=== PATIENT | female | born 1980 | race Caucasian/White ===

== ENCOUNTER 2017-09-24 11:45 | Emergency (ER) | payer OTHER ==
[2017-09-24 12:03] VITALS: BP 120/60; O2SAT 98
--- NOTE | 2017-09-24 12:14 | ERPHSYRPT ---
- History of Present Illness Time Seen by Provider: 09/24/17 12:05 Source: patient Exam Limitations: no limitations Patient Subjective Stated Complaint: here for swelling to right eye since sunday. unsure of what happened, has been outside this weekend Triage Nursing Assessment: pt alert, resp easy, skin w/d/p.right eye with redness and slight swelling Physician History: 37-year-old white female arrives with complaint of swelling in the right lower eyelid symptoms for 2 days. Patient states she had a sore throat and then the 2 days ago she woke up with the swelling and drainage from her right lower eyelid. She denies any injury. She has not had a fever past medical history includes migraines, peripheral neuropathy, hypercholesterolemia, diabetes, fibromyalgia, GERD, chronic back pain. Past surgical history includes , laparoscopy. . Timing/Duration: day(s) Severity: moderate Modifying Factors: Improves With: nothing (2 days) Associated Symptoms: other (swelling right lower eyelid, sore throat), No nausea , No vomiting, No abdominal pain, No shortness of breath, No heartburn, No diaphoresis, No cough, No chills, No chest pain, No fever, No headaches, No loss of appetite, No malaise, No rash, No syncope, No seizure, No weakness Allergies/Adverse Reactions: hydromorphone HCl [From Dilaudid] Allergy (Intermediate, Verified 09/24/17 12:04 ) Rash aspirin Allergy (Verified 09/24/17 12:04) carisoprodol [From Soma] Allergy (Verified 09/24/17 12:04) doxycycline Allergy (Verified 09/24/17 12:04) glipizide Allergy (Verified 09/24/17 12:04) sulfamethoxazole [From Bactrim] Allergy (Verified 09/24/17 12:04) trimethoprim [From Bactrim] Allergy (Verified 09/24/17 12:04) control pills Allergy (Uncoded 09/24/17 12:04) Home Medications: Bupropion HCl 150 mg Sr [Wellbutrin SR 150 MG] 150 mg PO BID 03/16/16 [ History] Calcium Carbonate [[id number]] 500 mg PO DAILY 03/16/16 [History] Cetirizine HCl [Zyrtec] 10 mg PO DAILY 03/16/16 [History] Gabapentin 600 mg PO TID 03/16/16 [History] Ipratropium/Albuterol Sulfate [Combivent Respimat Common Canister] 2 puffs IH QID 03/16/16 [History] Metformin HCl 500 mg [Glucophage 500 MG] 500 mg PO BID 03/16/16 [History] Omeprazole [Prilosec] 40 mg PO DAILY 03/16/16 [History] Potassium Chloride 10 Meq Tab* [Klor Con 10 MEQ] 10 meq PO BID 03/16/16 [ History] Promethazine HCl 12.5 mg PO Q4HPRN PRN 03/16/16 [History] Propranolol HCl [Inderal LA] 60 mg PO DAILY 03/16/16 [History] Ropinirole HCl [Requip] 2 mg PO HS 03/16/16 [History] Simvastatin 40 mg [Zocor 40 mg] 40 mg PO DAILY 03/16/16 [History] Topiramate [Topamax] 50 mg PO BID 03/16/16 [History] Hydrochlorothiazide 25 mg [hydroDIURIL 25 MG] 0 mg PO DAILY 06/27/16 [ History] Furosemide [Furosemide] 20 mg DAILY 09/24/17 [History] Hx Tetanus, Diphtheria Vaccination/Date Given: No Hx Influenza Vaccination/Date Given: Yes Hx Pneumococcal Vaccination/Date Given: No Immunizations Up to Date: Yes - Review of Systems Constitutional: No Fever, No Chills Eyes: Discharge, Eye Pain, Other (swelling right lower eyelid) Ears, Nose, & Throat: No Ear Pain, No Ear Discharge, No Hearing Changes, No Tinnitus, No Nose Pain, No Nose Congestion, No Nose Discharge, No Sinus Drainage , No Epistaxis, No Mouth Pain, No Mouth Swelling, No Loose Teeth, No Throat Swelling, No Hoarse, No Painful Swallowing, No Snoring, No Stridor Respiratory: No Cough, No Dyspnea Cardiac: No Chest Pain, No Edema, No Syncope Abdominal/Gastrointestinal: No Abdominal Pain, No Nausea, No Vomiting, No Diarrhea Genitourinary Symptoms: No Dysuria Musculoskeletal: No Back Pain, No Neck Pain Skin: No Rash Neurological: No Dizziness, No Focal Weakness, No Sensory Changes Psychological: No Symptoms Endocrine: No Symptoms All Other Systems: Reviewed and Negative - Past Medical History Pertinent Past Medical History: Yes Neurological History: No Pertinent History Cardiac History: Congestive Heart Failure, High Cholesterol Respiratory History: Emphysema Endocrine Medical History: Diabetes Type II Musculoskeletal History: Fibromyalgia GI Medical History: GERD Other Medical History: HAD LEUKEMIA WHEN SHE WAS 3 YEARS OLD. - Past Surgical History Past Surgical History: Yes Other Surgical History: c-sections et laparoscopy,wrist surg , carpal tunnel - Social History Smoking Status: Current every day smoker Exposure to second hand smoke: Yes Drug Use: none Patient Lives Alone: No - Female History Hx Last Menstrual Period: now Hx Now: No - Nursing Vital Signs Nursing Vital Signs: Initial Vital Signs Temperature 98.1 F 09/24/17 11:58 Pulse Rate 76 09/24/17 11:58 Respiratory Rate 16 09/24/17 11:58 Blood Pressure 120/60 09/24/17 11:58 O2 Sat by Pulse Oximetry 98 09/24/17 11:58 Pain Scale Pain Intensity 8 - Physical Exam General Appearance: mild distress Eye Exam: other (eyes PERRLA, extraocular muscles intact, right conjunctiva erythematous.edema right lower eyelid, no foreign bodies noted) Ears, Nose, Throat Exam: normal ENT inspection, TMs normal, pharynx normal, moist mucous membranes Neck Exam: normal inspection, non-tender, supple, full range of motion Respiratory Exam: normal breath sounds, lungs clear, No respiratory distress Cardiovascular Exam: regular rate/rhythm, normal heart sounds, normal peripheral pulses Gastrointestinal/Abdomen Exam: soft, normal bowel sounds, No tenderness, No mass Back Exam: normal inspection, normal range of motion, No CVA tenderness, No vertebral tenderness Extremity Exam: normal inspection, normal range of motion, pelvis stable Neurologic Exam: alert, oriented x 3, cooperative, 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, normal mood/affect, nml cerebellar function, nml station & gait, sensation nml, No motor deficits Skin Exam: normal color, warm, dry, No rash Lymphatic Exam: No adenopathy SpO2 Interpretation: normal (98%) SpO2: 98 Oxygen Delivery: Room Air - Course Nursing assessment & vital signs reviewed: Yes Ordered Tests: Active Orders 24 hr Category Date Time Status CULTURE, THROAT Stat Lab 09/24/17 12:18 Received STREP SCREEN-BETA A Stat Lab 09/24/17 12:18 Completed Medication Summary Discontinued Medications Generic Name Dose Route Start Last Admin Trade Name Freq PRN Reason Stop Dose Admin Ciprofloxacin 2.5 ml 09/24/17 12:28 09/24/17 12:36 Ciloxan Ophth OP 09/24/17 12:29 2.5 ml STAT ONE Administration Ciprofloxacin Confirm 09/24/17 12:35 Ciloxan Ophth Administered 09/24/17 12:36 Dose 2.5 ml .ROUTE .STK-MED ONE Lab/Rad Data: Laboratory Results 09/24/17 Range/Units 12:18 Streptococcus Screen NEGATIVE (Negative) - Progress Progress: improved Progress Note: 09/24/17 12:14 37-year-old white female arrives with complaint of drainage from the right eyes swelling of the right lower eyelid symptoms for 2 days. She states she had a sore throat prior to this and then woke up with the above- noted complaint. She has no fevers no vomiting. On physical examination eyes PERRLA EOMI fundi are unremarkable. Right conjunctiva erythematous there is yellow drainage from the right eye there is edema to the right lower eyelid. There are no foreign bodies in the eyes. Vision exam was obtained by the patient's nurse this is 20/50 in both eyes. Strep is pending. Anticipate appropriate antibiotics 09/24/17 12:30 patient with negative strep Will place patient on Ciloxan drops 1-2 drops left eye 4 times a day for 5 days as well as oral Benadryl 09/24/17 12:33 patient states that her period is now and denies chance of . - Departure Time of Disposition: 12:31 Departure Disposition: Home Clinical Impression: Swelling of right lower eyelid Conjunctivitis, right eye Qualifiers: Conjunctivitis type: unspecified Qualified Code(s): H10.9 - Unspecified conjunctivitis Condition: Fair Critical Care Time: No Referrals: GALLO POWELL [Primary Care Provider] - Additional Instructions: Return home. Ciloxan drops 0.3% one to 2 drops right eye 4 times a day for 5 days. Tylenol every 4 hours as needed for pain. Benadryl 50 mg orally every 6 hours for 2-3 days . 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 Return for acute distress or for severe symptoms.
[2017-09-24] MEDS ORDERED: Ciloxan OPHTH ONE (12:35)
[2017-09-24] MEDS: Ciloxan OPHTH OP ONE (12:36)
[2017-09-24 13:21] VITALS: PULSE 70
== END 2017-09-24 13:00 | disposition home or self-care (01) ==
LOC: ED 11:45
DX: H10.9 Unspecified conjunctivitis (principal); J02.9 Acute pharyngitis, unspecified; Z79.899 Other long term (current) drug therapy
CPT/HCPCS: 87070; 87430; 99283; A9270-GY

== ENCOUNTER 2019-04-04 16:26 | Emergency (ER) | payer OTHER ==
--- NOTE | 2019-04-04 16:28 | ERPHSYRPT ---
- History of Present Illness Time Seen by Provider: 04/04/19 16:28 Historian: patient, family Exam Limitations: no limitations Physician History: 39 y/o white female presents with 2 to 3 day right upper quad abd pain. she has associated feculent belching and diarrhea for 2 days. no prior abd surgeries. pt states she had a h/o gallstones in the past. additionally, she states she has an appt with her pcp on Sunday04/07/19 Timing/Duration: day(s) (2 to 3) Quality: sharpness Abdominal Pain Onset Location: RUQ Pain Radiation: no radiation Severity of Pain-Max: moderate Severity of Pain-Current: moderate Modifying Factors: Improves With: nothing Associated Symptoms: diarrhea, nausea Previous symptoms: no prior history Allergies/Adverse Reactions: hydromorphone HCl [From Dilaudid] Allergy (Intermediate, Verified 09/24/17 12:04 ) Rash aspirin Allergy (Verified 09/24/17 12:04) carisoprodol [From Soma] Allergy (Verified 09/24/17 12:04) doxycycline Allergy (Verified 09/24/17 12:04) glipizide Allergy (Verified 09/24/17 12:04) sulfamethoxazole [From Bactrim] Allergy (Verified 09/24/17 12:04) trimethoprim [From Bactrim] Allergy (Verified 09/24/17 12:04) control pills Allergy (Uncoded 09/24/17 12:04) Home Medications: Gabapentin 300 mg PO TID 03/16/16 [History] Ipratropium/Albuterol Sulfate [Combivent Respimat Common Canister] 2 puffs IH QID 03/16/16 [History] Metformin HCl 500 mg [Glucophage 500 MG] 1,000 mg PO BID 03/16/16 [History ] Omeprazole [Prilosec] 40 mg PO DAILY 03/16/16 [History] Potassium Chloride 10 Meq Tab* [Klor Con 10 MEQ] 10 meq PO DAILY 03/16/16 [ History] Topiramate [Topamax] 50 mg PO BID 03/16/16 [History] Pravastatin Sodium 40 mg PO DAILY 04/04/19 [History] Sitagliptin Phosphate [Januvia] 100 mg PO DAILY 04/04/19 [History] Hx Tetanus, Diphtheria Vaccination/Date Given: No Hx Influenza Vaccination/Date Given: Yes Hx Pneumococcal Vaccination/Date Given: No - Review of Systems Constitutional: No Symptoms Eyes: No Symptoms Ears, Nose, & Throat: No Symptoms Respiratory: No Symptoms Cardiac: No Symptoms Abdominal/Gastrointestinal: Abdominal Pain (ruq abd pain), Diarrhea Genitourinary Symptoms: No Symptoms Musculoskeletal: No Symptoms Skin: No Symptoms Neurological: No Symptoms Psychological: No Symptoms Endocrine: No Symptoms Hematologic/Lymphatic: No Symptoms Immunological/Allergic: No Symptoms All Other Systems: Reviewed and Negative - Past Medical History Pertinent Past Medical History: Yes Neurological History: No Pertinent History Cardiac History: Congestive Heart Failure, High Cholesterol Respiratory History: Emphysema Endocrine Medical History: Diabetes Type II Musculoskeletal History: Fibromyalgia GI Medical History: GERD, Gallbladder Disease History: No Pertinent History Psycho-Social History: No Pertinent History Female Reproductive Disorders: No Pertinent History Other Medical History: HAD LEUKEMIA WHEN SHE WAS 3 YEARS OLD. - Past Surgical History Past Surgical History: Yes Neuro Surgical History: No Pertinent History Cardiac: No Pertinent History Respiratory: No Pertinent History Gastrointestinal: No Pertinent History Genitourinary: No Pertinent History Musculoskeletal: No Pertinent History Female Surgical History: No Pertinent History Other Surgical History: c-sections et laparoscopy,wrist surg , carpal tunnel - Social History Smoking Status: Current every day smoker Exposure to second hand smoke: Yes Drug Use: none Patient Lives Alone: No - Nursing Vital Signs Nursing Vital Signs: Initial Vital Signs Temperature 97.9 F 04/04/19 16:35 Pulse Rate 94 H 04/04/19 16:35 Respiratory Rate 18 04/04/19 16:35 Blood Pressure 138/81 04/04/19 16:35 O2 Sat by Pulse Oximetry 100 04/04/19 16:35 Pain Scale Pain Intensity 6 - Physical Exam General Appearance: no apparent distress, alert, anxiety Eye Exam: PERRL/EOMI, eyes nml inspection Ears, Nose, Throat Exam: normal ENT inspection, moist mucous membranes Neck Exam: normal inspection, non-tender, supple, full range of motion Respiratory Exam: normal breath sounds, lungs clear, airway intact, No chest tenderness, No respiratory distress Cardiovascular Exam: regular rate/rhythm, normal heart sounds, normal peripheral pulses Gastrointestinal/Abdomen Exam: soft, normal bowel sounds, tenderness (ruq), guarding, No rebound Pelvic Exam: not done Rectal Exam: not done Back Exam: normal inspection, normal range of motion, No CVA tenderness, No vertebral tenderness Extremity Exam: normal inspection, normal range of motion, pelvis stable Neurologic Exam: alert, oriented x 3, cooperative, 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 as tested Skin Exam: normal color, warm, dry Lymphatic Exam: No adenopathy SpO2 Interpretation: normal O2 Delivery: Room Air Ordered Tests: Active Orders 24 hr Category Date Time Status IV Insertion STAT Care 04/04/19 17:19 Active ABDOMEN AND PELVIS W/0 CONTRAS [CT] Stat Exams 04/04/19 17:22 Taken AMYLASE Stat Lab 04/04/19 17:35 Completed CBC W DIFF Stat Lab 04/04/19 17:35 Completed CMP Stat Lab 04/04/19 17:35 Completed CULTURE,URINE Stat Lab 04/04/19 16:47 Received LIPASE Stat Lab 04/04/19 17:35 Completed Lactic Acid Stat Lab 04/04/19 17:19 Completed UA W/RFX UR CULTURE Stat Lab 04/04/19 16:47 Completed Medication Summary Discontinued Medications Generic Name Dose Route Start Last Admin Trade Name Ernieq PRN Reason Stop Dose Admin Hydrocodone Bitart/Acetaminophen 1 tab 04/04/19 19:03 04/04/19 19:10 [place] 5/325 Mg PO 04/04/19 19:04 1 tab STAT ONE Administration Hydrocodone Bitart/Acetaminophen Confirm 04/04/19 19:09 [place] 5/325 Mg Administered 04/04/19 19:10 Dose 1 tab .ROUTE .STK-MED ONE Sodium Chloride 1,000 mls @ 999 mls/hr 04/04/19 17:19 04/04/19 17:31 Sodium Chloride 0.9% 1000 Ml IV 04/04/19 18:19 999 mls/hr .Q1H1M STA Administration Sodium Chloride Confirm 04/04/19 17:26 Sodium Chloride 0.9% 1000 Ml Administered 04/04/19 17:27 Dose 1,000 mls @ ud .ROUTE .STK-MED ONE Ondansetron HCl 4 mg 04/04/19 17:19 04/04/19 17:31 Zofran 4 Mg/2 Ml Vial IV 04/04/19 17:20 4 mg STAT ONE Administration Ondansetron HCl Confirm 04/04/19 17:26 Zofran 4 Mg/2 Ml Vial Administered 04/04/19 17:27 Dose 4 mg .ROUTE .STK-MED ONE Trimethoprim/Sulfamethoxazole 1 tab 04/04/19 18:50 04/04/19 19:10 Bactrim Ds Tablet PO 04/04/19 18:51 1 tab STAT ONE Administration Trimethoprim/Sulfamethoxazole Confirm 04/04/19 19:08 Bactrim Ds Tablet Administered 04/04/19 19:09 Dose 1 tab PO .STK-MED ONE Lab/Rad Data: Laboratory Result Diagrams 04/04/19 17:35 04/04/19 17:35 Laboratory Results 04/04/19 04/04/19 04/04/19 Range/Units 17:35 17:35 17:19 WBC 9.2 (4.0-10.5) K/mm3 RBC 4.79 (4.1-5.4) M/mm3 Hgb 13.8 (12.0-16.0) gm/dl Hct 43.2 (35-47) % MCV 90.2 (78-100) fl MCH 28.8 (26-32) pg MCHC 31.9 L (32-36) g/dl RDW 14.9 H (11.5-14.0) % Plt Count 285 (150-450) K/mm3 MPV 10.3 H (6-9.5) fl Gran % 59.5 (36.0-66.0) % Eos # (Auto) 0.25 (0-0.5) Absolute Lymphs (auto) 2.81 (1.0-4.6) Absolute Monos (auto) 0.63 (0.0-1.3) Lymphocytes % 30.6 (24.0-44.0) % Monocytes % 6.9 (0.0-12.0) % Eosinophils % 2.7 (0.00-5.0) % Basophils % 0.3 (0.0-0.4) % Absolute Granulocytes 5.47 (1.4-6.9) Basophils # 0.03 (0-0.4) Sodium 143 (137-145) mmol/L Potassium 3.9 (3.5-5.1) mmol/L Chloride 111 H (98-107) mmol/L Carbon Dioxide 21 L (22-30) mmol/L Anion Gap 14.1 (5-15) MEQ/L BUN 8 (7-17) mg/dL Creatinine 0.70 (0.52-1.04) mg/dL Estimated GFR > 60.0 ML/MIN Glucose 188 H (74-106) mg/dL Lactic Acid 1.8 (0.4-2.0) Calcium 10.0 (8.4-10.2) mg/dL Total Bilirubin 0.30 (0.2-1.3) mg/dL AST 20 (14-36) U/L ALT 22 (0-35) U/L Alkaline Phosphatase 86 (38-126) U/L Serum Total Protein 7.6 (6.3-8.2) g/dL Albumin 4.2 (3.5-5.0) g/dL Amylase 93 (30-110) U/L Lipase 239 (23-300) U/L Urine Color (YELLOW) Urine Appearance (CLEAR) Urine pH (5-6) Ur Specific [place] (1.005-1.025) Urine Protein (Negative) Urine Ketones (NEGATIVE) Urine Blood (0-5) [place]/ul Urine Nitrite (NEGATIVE) Urine Bilirubin (NEGATIVE) Urine Urobilinogen (0-1) mg/dL Ur Leukocyte Esterase (NEGATIVE) Urine WBC (Auto) (0-5) /HPF Urine RBC (Auto) (0-2) /HPF U Epithel Cells (Auto) (FEW) /HPF Urine Bacteria (Auto) (NEGATIVE) /HPF Urine Yeast (Budding) (NEGATIVE) /HPF Urine Culture Reflexed (NO) Urine Glucose (NEGATIVE) mg/dL 04/04/19 Range/Units 16:47 WBC (4.0-10.5) K/mm3 RBC (4.1-5.4) M/mm3 Hgb (12.0-16.0) gm/dl Hct (35-47) % MCV (78-100) fl MCH (26-32) pg MCHC (32-36) g/dl RDW (11.5-14.0) % Plt Count (150-450) K/mm3 MPV (6-9.5) fl Gran % (36.0-66.0) % Eos # (Auto) (0-0.5) Absolute Lymphs (auto) (1.0-4.6) Absolute Monos (auto) (0.0-1.3) Lymphocytes % (24.0-44.0) % Monocytes % (0.0-12.0) % Eosinophils % (0.00-5.0) % Basophils % (0.0-0.4) % Absolute Granulocytes (1.4-6.9) Basophils # (0-0.4) Sodium (137-145) mmol/L Potassium (3.5-5.1) mmol/L Chloride (98-107) mmol/L Carbon Dioxide (22-30) mmol/L Anion Gap (5-15) MEQ/L BUN (7-17) mg/dL Creatinine (0.52-1.04) mg/dL Estimated GFR ML/MIN Glucose (74-106) mg/dL Lactic Acid (0.4-2.0) Calcium (8.4-10.2) mg/dL Total Bilirubin (0.2-1.3) mg/dL AST (14-36) U/L ALT (0-35) U/L Alkaline Phosphatase (38-126) U/L Serum Total Protein (6.3-8.2) g/dL Albumin (3.5-5.0) g/dL Amylase (30-110) U/L Lipase (23-300) U/L Urine Color YELLOW (YELLOW) Urine Appearance SLIGHTLY CLOUDY (CLEAR) Urine pH 6.0 (5-6) Ur Specific [place] 1.005 (1.005-1.025) Urine Protein NEGATIVE (Negative) Urine Ketones NEGATIVE (NEGATIVE) Urine Blood LARGE (0-5) [place]/ul Urine Nitrite NEGATIVE (NEGATIVE) Urine Bilirubin NEGATIVE (NEGATIVE) Urine Urobilinogen NEGATIVE (0-1) mg/dL Ur Leukocyte Esterase TRACE (NEGATIVE) Urine WBC (Auto) 6-10 (0-5) /HPF Urine RBC (Auto) 0-2 (0-2) /HPF U Epithel Cells (Auto) RARE (FEW) /HPF Urine Bacteria (Auto) NONE (NEGATIVE) /HPF Urine Yeast (Budding) Rare (NEGATIVE) /HPF Urine Culture Reflexed YES (NO) Urine Glucose NEGATIVE (NEGATIVE) mg/dL - Progress Progress: unchanged Progress Note: 04/04/19 18:52 ct abd/pelvis-left nephrolithiasis. 04/04/19 19:13 cancelled bactrim ds. will give cipro Counseled pt/family regarding: lab results, diagnosis, need for follow-up, rad results - Departure Departure Disposition: Home Clinical Impression: UTI (urinary tract infection) Condition: Stable Critical Care Time: No Referrals: GALLO POWELL [Primary Care Provider] - Additional Instructions: drink plenty of fluids. follow up with primary doctor for further management. Prescriptions: Ciprofloxacin [Cipro 500 MG] 500 mg PO BID #14 tablet
[2019-04-04] MEDS ORDERED: Zofran 4 MG/2 ML VIAL IV ONE (17:19)
[2019-04-04] MEDS ORDERED: Sodium Chloride 0.9% 1000 ML 1,000 ML IV STA (17:19)
[2019-04-04] MEDS ORDERED: Zofran 4 MG/2 ML VIAL ONE (17:26)
[2019-04-04] MEDS ORDERED: Sodium Chloride 0.9% 1000 ML 1,000 ML ONE (17:26)
[2019-04-04 17:41] LABS: Absolute Neutrophil Ct (ANC) 5.47 (1.4-6.9); BASOPHIL % 0.3 % (0.0-0.4); Basophil (Absolute #) 0.03 (0-0.4); Eosinophil % 2.7 % (0.00-5.0); Eosinophil (Absolute #) 0.25 (0-0.5); Hematocrit 43.2 % (35-47); Hemoglobin 13.8 gm/dl (12.0-16.0); Lymphocyte (Absolute #) 2.81 (1.0-4.6); Lymphocytes % 30.6 % (24.0-44.0); Mean Cell Volume 90.2 fl (78-100); Mean Corpuscular Hemoglobin 28.8 pg (26-32); Mean Corpuscular Hgb Concent. 31.9 g/dl (32-36); Mean Platelet Volume 10.3 fl (6-9.5); Monocyte (Absolute #) 0.63 (0.0-1.3); Monocytes % 6.9 % (0.0-12.0); Neutrophil % 59.5 % (36.0-66.0); Platelet Count 285 K/mm3 (150-450); Red Blood Count 4.79 M/mm3 (4.1-5.4); Red Cell Distribution Width 14.9 % (11.5-14.0); White Blood Count 9.2 K/mm3 (4.0-10.5)
[2019-04-04 17:51] LABS: ALBUMIN 4.2 g/dL (3.5-5.0); ALKALINE PHOSPHATASE 86 U/L (38-126); AMYLASE 93 U/L (30-110); ANION GAP 14.1 MEQ/L (5-15); BLOOD UREA NITROGEN 8 mg/dL (7-17); CHLORIDE 111 mmol/L (98-107); Carbon Dioxide 21 mmol/L (22-30); Glucose 188 mg/dL (74-106); LIPASE 239 U/L (23-300); Potassium 3.9 mmol/L (3.5-5.1); SGOT/AST 20 U/L (14-36); SGPT/ALT 22 U/L (0-35); SODIUM 143 mmol/L (137-145); Total Protein 7.6 g/dL (6.3-8.2)
[2019-04-04 18:10] LABS: Appearance SLIGHTLY CLOUDY (CLEAR); Bilirubin NEGATIVE (NEGATIVE); Blood LARGE Ery/ul (0-5); Epithelial Cells RARE /HPF (FEW); Glucose NEGATIVE (NEGATIVE); Ketones NEGATIVE (NEGATIVE); Leukocyte Esterase TRACE (NEGATIVE); Nitrite NEGATIVE (NEGATIVE); Protein,Urine Dip NEGATIVE (Negative); RBC 0-2 /HPF (0-2); Specific Gravity 1.005 (1.005-1.025); Urobilinogen NEGATIVE mg/dL (0-1)
[2019-04-04 18:12] LABS: Budding Yeast Rare /HPF (NEGATIVE)
[2019-04-04] MEDS ORDERED: BACTRIM DS TABLET PO ONE ×2 (18:50→19:08)
[2019-04-04] MEDS ORDERED: NORCO 5/325 MG PO ONE (19:03)
[2019-04-04] MEDS ORDERED: NORCO 5/325 MG ONE (19:09)
[2019-04-04] MEDS ORDERED: Cipro 500 MG ONE (19:14)
[2019-04-04] MEDS ORDERED: Cipro 500 MG PO ONE (19:15)
[2019-04-04 20:20] VITALS: BP 115/76; PULSE 83; O2SAT 97
--- NOTE | 2019-04-04 21:42 | XRAY ---
Indication: Right upper quadrant pain. Diarrhea. Multiple contiguous axial images obtained through the abdomen and pelvis without contrast as ordered. Comparison: None Lung bases demonstrates tiny right lower lobe calcified granuloma and minimal bilateral dependent atelectasis. No infiltrate or effusion. Heart is not enlarged. Noncontrasted stomach and bowel loops appear nonobstructed. Normal appendix. No free fluid/air. Gallbladder contracted without gallstones. Left kidney demonstrates nonobstructing punctate calculus and 1 cm mid pole cyst. Remaining liver, pancreas, spleen, adrenal glands, kidneys, ureters, bladder, uterus, and aorta appear unremarkable for noncontrast exam. Osseous structures intact. Impression: 1. Left renal nonobstructing micro-calculus and cyst. 2. Remaining CT abdomen/pelvis without contrast exam is negative. Comment: Preliminary interpretation was made by [facility]. No critical discrepancy. CTDI 17.80
== END 2019-04-04 20:10 | disposition home or self-care (01) ==
LOC: ED 16:26
DX: N39.0 Urinary tract infection, site not specified (principal); R10.11 Right upper quadrant pain; R19.7 Diarrhea, unspecified; R11.0 Nausea
CPT/HCPCS: 36415; 74176; 80053; 81001; 82150; 83605; 83690; 85025; 87086; 96374; 99284; J2405; A9270-GY

== ENCOUNTER 2019-06-27 06:03 | Day surgery (SDC) | payer OTHER ==
[2019-06-27] MEDS ORDERED: Lactated Ringers 1,000 ML IV SCH (07:00)
[2019-06-27] MEDS ORDERED: DIPRIVAN 200 MG/20 ML IV ONE (08:04)
[2019-06-27] MEDS ORDERED: Versed 2 MG/2 ML Injection ONE (08:05)
[2019-06-27] MEDS ORDERED: Lactated Ringers 1,000 ML IV ONE (08:05)
--- NOTE | 2019-06-27 08:38 | OP ---
SURGERY DATE/TIME: 06/27/2019805 PREOPERATIVE DIAGNOSIS: Right upper quadrant abdominal pain and weight loss. POSTOPERATIVE DIAGNOSIS: Mild gastritis. PROCEDURE: Esophagogastroduodenoscopy with biopsy. SURGEON: Dr. Lipscomb. ANESTHESIA: Medications were given by the anesthesia department. BRIEF HISTORY: The patient is a 39 year old white female who reports she has had 20 pound weight loss in the last month. She has been having right upper quadrant abdominal pain. Evaluation had consisted of gallbladder ultrasound and HIDA scans which were normal. The patient was felt the need to have endoscopic evaluation. She was apprised of the risks of the procedure including the risk of perforation, phlebitis, untoward reaction to medication, bleeding and missed lesions. The patient verbalized her understanding and desired to have the procedure performed. DESCRIPTION OF PROCEDURE: The patient was given the medications by the anesthesia department. She had continuous pulse oximetry, ECG monitoring, intermittent blood pressure monitoring and tidal CO2 monitoring during the examination. The patient was placed in the left lateral decubitus position. A bite block was placed and the flexible Olympus gastroscope was used to intubate the oropharynx. A view of the larynx was obtained and was normal. The scope was easily introduced in the esophagus which appeared to be normal throughout its length. The stomach was entered where normal gastric rugal folds were seen and these distended nicely with insufflation of air. The scope was passed along the greater curvature of the stomach to the antrum. The pylorus was encountered and intubated. Duodenum inspected and found to be normal. The scope is withdrawn towards the stomach. A retroflex view was obtained of the lesser curvature, fundus and cardia regions of the stomach and these appeared to be normal. The scope was then redirected towards the gastric antrum and biopsies were obtained to rule out the presence of Helicobacter pylori-type organisms. The scope was then removed from the patient who tolerated the procedure well and was sent back to outpatient recovery in good condition.
[2019-06-27 08:59] VITALS: O2SAT 96
[2019-06-27 09:15] VITALS: BP 122/70; PULSE 72
== END 2019-06-27 09:17 | disposition home or self-care (01) ==
LOC: SDC 06:03
PROVIDERS: ATTEND Family Medicine
DX: K29.70 Gastritis, unspecified, without bleeding (principal); R63.4 Abnormal weight loss; E11.9 Type 2 diabetes mellitus without complications; Z79.899 Other long term (current) drug therapy
CPT/HCPCS: 82962; 88305; J2250; J2704